=== PATIENT | female | born 1935 | race Caucasian/White ===

== ENCOUNTER 2018-09-20 00:13 | Emergency (ER) | payer OTHER ==
[~2018-09-20] VITALS: Ht 152.4 cm; Wt 59.0 kg
[2018-09-20] MEDS ORDERED: PREDNISONE 5 MG5 M1 PO (00:33)
[2018-09-20] MEDS ORDERED: OXYBUTYNIN ER 55 M1 PO (00:34)
[2018-09-20] MEDS ORDERED: LEVOTHYROXINE100 MCG PO (00:35)
[2018-09-20] MEDS ORDERED: PEPCID20 MG PO (00:36)
[2018-09-20] MEDS ORDERED: TOPROL XL25 MG PO (00:36)
[2018-09-20] MEDS ORDERED: SINEMET 25-1001 EAC1 PO (00:38)
[2018-09-20] MEDS ORDERED: TRANSDERM-SCOP1 EACH TOP (00:41)
[2018-09-20] MEDS ORDERED: MSL20MG/ML PO (00:42)
[2018-09-20 02:59] VITALS: BP 99/57
== END 2018-09-20 03:01 | disposition home or self-care (01) ==
LOC: ER 00:13
DX: S01.01XA Laceration without foreign body of scalp, initial encounter (principal); Z88.0 Allergy status to penicillin; W18.39XA Other fall on same level, initial encounter; Y92.89 Other specified places as the place of occurrence of the external cause; Y93.89 Activity, other specified; Y99.8 Other external cause status

== ENCOUNTER 2018-10-06 18:25 | Inpatient (IN) | payer OTHER ==
[~2018-10-06] VITALS: Ht 162.6 cm; Wt 48.6 kg
--- NOTE | ~2018-10-06 | H ---
[facility] [place] [address] HISTORY AND PHYSICAL Name: ESTEBAN GONZALEZ Room #: 430-P ADM IN M.R.#: [id number] Admission: 10/06/18 Attend Phys: Austyn Barlow MD Discharge: Date of : 35 Report #: [id number] THIS REPORT FOR: //name// CC: Uday Barlow DATE OF SERVICE: 10/06/2018 HISTORY OF PRESENT ILLNESS: Information is obtained from the patient's who gives limited, but reliable information, and the Emergency Room physician. The patient has dementia and has been limited, apparently bed bound, but with some contractures, but alert enough to drink and eat when spoon fed. Her vocalization is limited. However, over the last several days, she has become increasingly nonresponsive and yesterday, the day of admission, she did not respond or speak at all. She did not swallow anything, would not eat or drink nor take her medications. She was brought to the Emergency Room where a urinary tract infection was identified and admission was arranged. She was given intravenous antibiotics in the Emergency Room and started on intravenous fluids. Her is present this morning, as well as yesterday, and now she has her eyes open, she mumbles a few syllables in response to questions. The nursing staff has been able to feed her pudding, she has been able to swallow some of her medications, and drinks some thickened fluids. He comments that she is much better today than she was yesterday before she came to the Emergency Room. 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 ALLERGIES: PENICILLINS. Because of her dementia, she is a long-term care resident at a longterm facility, she recently was on hospice and discharged from hospice, she is a DNR. DIET: Pureed with nectar-thick liquids. MEDICATIONS: Prednisone 5 mg on a daily basis, oxybutynin extended release 15 mg tablets 1 every 24 hours for urine retention, levothyroxine 100 mcg daily, famotidine one 20 mg daily, Sinemet 25/100 three times daily, scopolamine patch every 3 days p.r.n. secretions, morphine 0.25 mL every 4 hours as needed for pain and prior to dressing changes, ipratropium by nebulizer every 6 hours, Tylenol 2 tablets every 8 hours scheduled, Mucinex 600 mg twice daily, [address] [address] HISTORY AND PHYSICAL Name: ETSEBAN GONZALEZ Room #: 430-P [facility] IN M.R.#: [id number] Admission: 10/06/18 Attend Phys: Austyn Barlow MD Discharge: Date of : 35 Report #: [id number] metoprolol tartrate 25 mg once daily. SPECIFIC NURSING INTERVENTIONS: Dressing changes for her sacral decubitus, low air loss mattress on her bed, heel lift boots at all times. REVIEW OF SYSTEMS: Information is unavailable. FAMILY HISTORY: Not available. PHYSICAL EXAMINATION: GENERAL: This morning exam shows an 83-year-old female who is alert, but barely responsive. Her is present. Her eyes are open, and partially follow the examiner around the room. She is lying on her side. Her legs are atrophied with SCDs on. Her legs are flexed. LUNGS: Breath sounds showed minimal depth of respiration. Posteriorly, there are a few crackles present. HEART: S1 and S2 are normal. ABDOMEN: Soft, nontender, without hepatosplenomegaly or masses. LABORATORY DATA: Her potassium is low at 3.0, and came up to 3.3 after overnight fluids. Her blood sugar this morning is mildly low at 70, a note made that she was not eating yesterday, but now has started to eat. Her albumin is 2.5. Hemoglobin is 12.4 and dropped to 11.2 with rehydration. Her urine is nitrite positive, leukocyte esterase positive with many bacteria and white blood cells. ASSESSMENT: 1. Urinary tract infection. 2. Metabolic encephalopathy that has responded to medical treatment. 3. Volume depletion. 4. Dementia. 5. Parkinson's disease. 6. Hypokalemia. 7. History of diabetes with low blood sugars. 8. Low thyroid. 9. Gastroesophageal reflux disease. 10. A clean appearing 6 x 6 x 1 cm deep sacral decubitus ulcer. 11. Hypertension. PLAN: IV fluids were continued, IV Rocephin is continued, her home medicines are being resumed now that she is swallowing, and her home diet. Pulmonary consultation will be obtained, and PRAFO boots ordered as well. [facility] [address] [place] [address] HISTORY AND PHYSICAL Name: ESTEBAN GONZALEZ Room #: 430-P ADM IN Kirt#: [id number] Admission: 10/06/18 Attend Phys: Austyn Barlow MD Discharge: Date of : 35 Report #: [id number] She remains a do not resuscitate. By: 1506 1552 Austyn Barlow MD /nt
--- NOTE | ~2018-10-06 | EKG ---
[address] [employer] [place] [address] ELECTROCARDIOGRAM REPORT Name: ESTEBAN GONZALEZ Room #: 430-P ADM IN M.R.#: [id number] Admission: 10/06/18 Attend Phys: Austyn Barlow MD Discharge: Date of : 35 Report #: [id number] THIS REPORT FOR: //name// [facility] ED Test Date: 2018-10-06 Test Time: 18:54:38 Pat Name: ESTEBAN GONZALEZ Department: Room: 430 Gender: F Cafeteria Assistant: BRI : 1935 Requested By: Jose G Britton Order Number: [id number] MD: Glenn Patrick Measurements Intervals [place] Rate: 89 P: 0 [place]: 68 QRS: 66 QRSD: 178 T: -38 QT: 459 QTc: 559 Interpretive Statements Sinus rhythm Multiple ventricular premature complexes Short [place] interval Nonspecific intraventricular conduction delay Probable anteroseptal infarct, old No previous ECG available for comparison Electronically Signed On 10-08-2018 20:27:06 BUNDLE HELPER by Glenn Patrick [email or web address] <ELECTRONICALLY SIGNED> By: Glenn Patrick MD 10/08/182026 53 53 Glenn Patrick MD /EPI
--- NOTE | ~2018-10-06 | HC ---
[facility] [place] [address] CONSULTATION Name: ESTEBAN GONZALEZ Room #: 430-P [facility] IN M.R.#: [id number] Admission: 10/06/18 Attend Phys: Fausot Thompson MD Discharge: 10/09/18 Date of : 35 Report #: [id number] THIS REPORT FOR: //name// CC: Fausto Barlow DATE OF SERVICE: 10/08/2018 REASON FOR CONSULTATION: Stage 4 chronic pressure ulcer in an 83-year-old woman with parkinsonism, dementia, debility and contractures, admitted for change in mental status, dehydration, urinary tract infection. HISTORY OF PRESENT ILLNESS: The patient is an 83-year-old woman who resides at [facility]. Her is sitting at the bedside. The patient does not give a history herself. The patient has been residing at [facility] for some time. She has had a sacral pressure sore for 8 months, but according to her this has been chronic and stable. The patient was in [facility], stopped eating, became unresponsive with altered mental status, therefore was admitted to [facility] for medical evaluation. I am consulted for wound care here for sacral pressure sore. PAST MEDICAL HISTORY: 1. Parkinson disease. 2. Coronary artery disease. 3. Dementia. 4. Diabetes mellitus type 2. 5. Extreme debility, immobility and contractures of extremities. 6. Recent decrease in diet. PAST SURGICAL HISTORY: Noncontributory. REVIEW OF SYSTEMS: Noncontributory. PHYSICAL EXAMINATION: GENERAL: Shows a chronically ill-appearing elderly woman with parkinsonism and dementia. The patient is nonresponsive. The patient has contractures of the upper and lower extremities. HEENT: Mucous membranes are moist. NECK: Somewhat stiff. ABDOMEN: Soft. EXTREMITIES: No use of lower extremities. BACK: Examination of the patient's back shows a chronic ill-appearing 2.5 cm x 3 cm x 0.2 cm deep sacral pressure sore. There is palpable bone at the base covered with granulation tissue. Wound is pink, smooth and chronic appearing with no cellulitis, with no tunneling, with no purulence. Wound was dressed with quarter strength Dakin's pack. [address] [address] CONSULTATION Name: ESTEBAN GONZALEZ Room #: 430-P [facility] IN M.R.#: [id number] Admission: 10/06/18 Attend Phys: Fausto Thompson MD Discharge: 10/09/18 Date of : 35 Report #: [id number] IMPRESSION: Chronic stable stage 4 sacral pressure in a very debilitated and immobile elderly woman with dementia and parkinsonism. Wound is stable, this is not the source for sepsis. Dressed the wound initially with quarter strength Dakin's dressings and then change to alternative dressings such as Aquacel silver. Offload with low air loss mattress, reposition frequently. Wound Care team will follow. <ELECTRONICALLY SIGNED> By: Paul Ardon MD 10/10/18 0759 1625 2055 Paul Ardon MD /nt
[~2018-10-06 18:25] MED LIST: LEVOTHYROXINE100 MCG PO; MSL20MG/ML PO; OXYBUTYNIN ER 55 M1 PO; PEPCID20 MG PO; PREDNISONE 5 MG5 M1 PO; SINEMET 25-1001 EAC1 PO; TOPROL XL25 MG PO; TRANSDERM-SCOP1 EACH TOP
[2018-10-06 18:33] VITALS: BP 110/62
[2018-10-06 18:43] LABS: URINE BILIRUBIN NEGATIVE (Negative); URINE BLOOD TRACE (Negative); URINE COLOR YELLOW; URINE GLUCOSE-RANDOM* NEGATIVE (Negative); URINE KETONES TRACE (Negative); URINE LEUKOCYTES-REFLEX 2+ (Negative); URINE NITRITE-REFLEX POSITIVE (Negative); URINE PROTEIN (DIPSTICK) TRACE (Negative)
[2018-10-06 18:44] LABS: URINE CLARITY HAZY
[2018-10-06 18:48] LABS: SQUAMOUS 4-10 Moderate /LPF (0-3)
[2018-10-06 18:49] LABS: BACTERIA-REFLEX >30 Many /HPF (None Seen); CASTS None Seen /LPF (None Seen); CRYSTALS None Seen /LPF (None Seen); URINE RBC 0-2 Rare /HPF (0-2); URINE WBC-REFLEX >25 Many /HPF (0-5)
[2018-10-06 19:28] LABS: ABSOLUTE NEUTROPHILS 4.6 thou/uL (1.4-8.2); BASOPHILS 1.4 % (0.0-2.0); EOSINOPHILS 1.5 % (0.0-3.0); HEMATOCRIT 37.1 % (37.0-47.0); HEMOGLOBIN 12.4 gm/dL (12.0-15.0); LYMPHOCYTES 30.7 % (24.0-44.0); MCH 32.5 pg (26.0-34.0); MCHC 33.3 g/dL (28.0-37.0); MCV 97.5 fL (80.0-100.0); MONOCYTES 7.7 % (1.0-8.0); PLATELET COUNT 253 thou/uL (150-400); POLYS 58.7 % (36.0-66.0); RBC 3.81 mil/uL (4.20-5.00); WBC 7.8 thou/uL (4.0-11.0)
[2018-10-06 19:37] LABS: ANION GAP 5 mmol/L (7-16); BUN 10 mg/dL (7-18); CALCIUM 8.7 mg/dL (8.5-10.1); CHLORIDE 105 mmol/L (98-107); CO2 29 mmol/L (21-32); CREATININE 0.5 mg/dL (0.6-1.0); GLUCOSE 84 mg/dL (74-106); SODIUM 139 mmol/L (136-145)
[2018-10-06 19:45] LABS: TROPONIN-I <0.06 ng/mL (<0.06)
[2018-10-06] MEDS ORDERED: MORPHINE PO (21:01)
[2018-10-06] MEDS ORDERED: IPRAT-ALBUT 0.5-3 ML (21:04)
[2018-10-06] MEDS ORDERED: TYLENOL EXTRA500 MG PO (21:05)
[2018-10-06] MEDS ORDERED: MUCINEX600 MG PO (21:07)
[2018-10-06 21:24] VITALS: BP 113/62
[2018-10-06 21:36] VITALS: BP 102/45
[2018-10-06 22:00] VITALS: BP 115/68
[2018-10-07] MEDS ORDERED: MSL20MG/ML PO (03:49)
[2018-10-07 05:00] VITALS: BP 121/68
[2018-10-07 06:31] LABS: ABSOLUTE NEUTROPHILS 5.2 thou/uL (1.4-8.2); BASOPHILS 0.4 % (0.0-2.0); EOSINOPHILS 1.7 % (0.0-3.0); HEMATOCRIT 34.2 % (37.0-47.0); HEMOGLOBIN 11.2 gm/dL (12.0-15.0); LYMPHOCYTES 26.2 % (24.0-44.0); MCH 32.7 pg (26.0-34.0); MCHC 32.9 g/dL (28.0-37.0); MCV 99.6 fL (80.0-100.0); MONOCYTES 6.4 % (1.0-8.0); PLATELET COUNT 231 thou/uL (150-400); POLYS 65.3 % (36.0-66.0); RBC 3.43 mil/uL (4.20-5.00); RDW 14.7 % (10.5-14.5)
[2018-10-07 06:46] LABS: ALBUMIN 2.5 g/dL (3.4-5.0); CREATININE 0.5 mg/dL (0.6-1.0); POTASSIUM 3.3 mmol/L (3.5-5.1); TOTAL BILIRUBIN 0.3 mg/dL (<0.1-1.0); TOTAL PROTEIN 5.9 g/dL (6.4-8.2)
[2018-10-07 08:38] VITALS: BP 112/67
[2018-10-07 16:24] VITALS: BP 109/49
[2018-10-07 20:10] VITALS: BP 104/59
[2018-10-08 03:40] VITALS: BP 106/56
[2018-10-08 05:50] LABS: HEMATOCRIT 32.9 % (37.0-47.0); HEMOGLOBIN 10.6 gm/dL (12.0-15.0); MCH 32.1 pg (26.0-34.0); MCHC 32.1 g/dL (28.0-37.0); MCV 99.9 fL (80.0-100.0); RBC 3.29 mil/uL (4.20-5.00); RDW 14.8 % (10.5-14.5); WBC 6.1 thou/uL (4.0-11.0)
[2018-10-08 06:00] LABS: CALCIUM 8.2 mg/dL (8.5-10.1); CREATININE 0.5 mg/dL (0.6-1.0); POTASSIUM 4.2 mmol/L (3.5-5.1)
[2018-10-08 07:38] VITALS: BP 111/77
[2018-10-08 16:26] VITALS: BP 110/52
[2018-10-08 20:22] VITALS: BP 107/59
[2018-10-09 03:25] VITALS: BP 99/45
[2018-10-09 06:21] LABS: HEMATOCRIT 34.9 % (37.0-47.0); HEMOGLOBIN 11.6 gm/dL (12.0-15.0); MCH 32.6 pg (26.0-34.0); MCHC 33.2 g/dL (28.0-37.0); MCV 98.3 fL (80.0-100.0); RBC 3.55 mil/uL (4.20-5.00); RDW 14.6 % (10.5-14.5)
[2018-10-09 06:25] LABS: CALCIUM 8.4 mg/dL (8.5-10.1); CREATININE 0.5 mg/dL (0.6-1.0); POTASSIUM 4.3 mmol/L (3.5-5.1)
[2018-10-09 07:34] VITALS: BP 113/59
[2018-10-09] MEDS ORDERED: CEFUROXIME250 MG PO (10:48)
[2018-10-09] MEDS ORDERED: PROBIOTIC1 EAC1 PO (10:55)
[2018-10-09 15:52] VITALS: BP 130/70
== END 2018-10-09 17:55 | DRG 91 ==
LOC: ER 18:25 → EROBS 20:02 → 4E 20:02
PROVIDERS: Emergency Medicine; Internal Medicine
DX: G92 Toxic encephalopathy (principal); L89.154 Pressure ulcer of sacral region, stage 4; N39.0 Urinary tract infection, site not specified; Z68.1 Body mass index [BMI] 19.9 or less, adult; Z66 Do not resuscitate; G20 Parkinson's disease; F02.80 Dementia in other diseases classified elsewhere, unspecified severity, without behavioral disturbance, psychotic disturbance, mood disturbance, and anxiety; K21.9 Gastro-esophageal reflux disease without esophagitis; I10 Essential (primary) hypertension; E87.6 Hypokalemia; J84.10 Pulmonary fibrosis, unspecified; I25.10 Atherosclerotic heart disease of native coronary artery without angina pectoris; E11.40 Type 2 diabetes mellitus with diabetic neuropathy, unspecified; M19.90 Unspecified osteoarthritis, unspecified site; E86.9 Volume depletion, unspecified; E03.9 Hypothyroidism, unspecified; B96.20 Unspecified Escherichia coli [E. coli] as the cause of diseases classified elsewhere; R63.0 Anorexia; E78.5 Hyperlipidemia, unspecified; F32.9 Major depressive disorder, single episode, unspecified; Z79.52 Long term (current) use of systemic steroids; Z79.899 Other long term (current) drug therapy; Z88.0 Allergy status to penicillin
CPT/HCPCS: 10084

== ENCOUNTER 2018-11-06 15:54 | Inpatient (IN) | payer OTHER ==
[2018-11-06] VITALS (16 sets, daily range): BP systolic 80–128; BP diastolic 29–79
[~2018-11-06] VITALS: Ht 154.9 cm; Wt 48.1 kg
[~2018-11-06 15:54] MED LIST changes: +CEFUROXIME250 MG PO; +IPRAT-ALBUT 0.5-3 ML; +MORPHINE PO; +MUCINEX600 MG PO; +PROBIOTIC1 EAC1 PO; +TYLENOL EXTRA500 MG PO
[2018-11-06 16:26] LABS: ANION GAP 13 mmol/L (7-16); BUN 41 mg/dL (7-18); CALCIUM 9.6 mg/dL (8.5-10.1); CHLORIDE 104 mmol/L (98-107); CO2 25 mmol/L (21-32); CREATININE 1.1 mg/dL (0.6-1.0); GLUCOSE 156 mg/dL (74-106); POTASSIUM 3.6 mmol/L (3.5-5.1); SODIUM 142 mmol/L (136-145)
[2018-11-06 16:32] LABS: WBC 3.9 thou/uL (4.0-11.0)
[2018-11-06 16:32] LABS: URINE CLARITY CLOUDY; URINE COLOR YELLOW; URINE GLUCOSE-RANDOM* NEGATIVE (Negative); URINE KETONES 1+ (Negative); URINE PROTEIN (DIPSTICK) 2+ (Negative); URINE SPECIFIC GRAVITY > 1.030 (1.005-1.035)
[2018-11-06 16:33] LABS: HEMATOCRIT 42.6 % (37.0-47.0); MCHC 32.8 g/dL (28.0-37.0); MCV 97.5 fL (80.0-100.0); PLATELET COUNT 187 thou/uL (150-400); RBC 4.37 mil/uL (4.20-5.00); RDW 14.8 % (10.5-14.5)
[2018-11-06 16:33] LABS: ICTOTEST (BILI CONFIRMATORY) Negative (Negative); URINE BILIRUBIN NEGATIVE (Negative); URINE BLOOD 1+ (Negative); URINE LEUKOCYTES-REFLEX NEGATIVE (Negative); URINE NITRITE-REFLEX POSITIVE (Negative)
[2018-11-06 16:35] LABS: ALBUMIN 2.7 g/dL (3.4-5.0); SGOT 36 U/L (15-37); SGPT 21 U/L (30-65); TOTAL BILIRUBIN 2.1 mg/dL (<0.1-1.0); TROPONIN-I <0.06 ng/mL (<0.06)
[2018-11-06 16:41] LABS: AMORPHOUS URATES Many /LPF (None Seen); BACTERIA-REFLEX >30 Many /HPF (None Seen); COARSE GRANULAR CASTS 0-3 Few /LPF (None Seen); SQUAMOUS 4-10 Moderate /LPF (0-3); URINE RBC 3-10 Few /HPF (0-2); URINE WBC-REFLEX 6-15 Few /HPF (0-5)
[2018-11-06 16:42] LABS: HYALINE CASTS 0-3 Few /LPF (None Seen); YEAST-REFLEX Present (None Seen)
[2018-11-06 17:09] LABS: ABSOLUTE NEUTROPHILS 2.7 thou/uL (1.4-8.2); METAMYELOCYTES 16 %; MYELOCYTES 1 %
[2018-11-07] VITALS (9 sets, daily range): BP systolic 79–122; BP diastolic 48–70
[2018-11-07 00:06] LABS: HEMATOCRIT 32.9 % (37.0-47.0); MCH 32.5 pg (26.0-34.0); MCHC 32.9 g/dL (28.0-37.0); MCV 98.9 fL (80.0-100.0); RBC 3.33 mil/uL (4.20-5.00); RDW 14.6 % (10.5-14.5)
[2018-11-07 00:10] LABS: WBC 1.4 thou/uL (4.0-11.0)
[2018-11-07 00:11] LABS: HEMOGLOBIN 10.8 gm/dL (12.0-15.0); PLATELET COUNT 105 thou/uL (150-400)
[2018-11-07 00:12] LABS: CALCIUM 8.1 mg/dL (8.5-10.1)
[2018-11-07 00:14] LABS: POTASSIUM 2.9 mmol/L (3.5-5.1)
[2018-11-07 00:45] LABS: ABSOLUTE NEUTROPHILS 1.1 thou/uL (1.4-8.2); METAMYELOCYTES 1 %
--- NOTE | 2018-11-07 04:38 | NUR ---
END OF SHIFT; PT OPENS EYES SPONTANEOUSLY. NO VERBAL RESPONSES. PT PROGRESSING TOWARD GOALS. HR LESS TACHYCARDIC 98. BP UP 102/59 WITH FLUIDS INFUSING. SR WITH NO ECTOPY WITH POTASSIUM REPLACEMENT FOR VALUE 2.9. CHANGED MENDOZA, CLOUDY CONNOR URINE -URINE OUTPUT REMAINS LOW, BUT IMPROVING. FI02 TITRATE DOWN TO .50 ON BIPAP ---02SAT 97. PROGRESSING TOWARD GOALS. WILL TRANSFER UP TO [facility] ORDERED PER ADMISSION IN AM
[2018-11-07 05:19] LABS: HEMATOCRIT 32.5 % (37.0-47.0); HEMOGLOBIN 10.8 gm/dL (12.0-15.0); MCH 32.7 pg (26.0-34.0); MCHC 33.2 g/dL (28.0-37.0); MCV 98.4 fL (80.0-100.0); PLATELET COUNT 90 thou/uL (150-400); RDW 14.7 % (10.5-14.5); WBC 2.3 thou/uL (4.0-11.0)
[2018-11-07 05:30] LABS: CALCIUM 7.8 mg/dL (8.5-10.1); CREATININE 0.8 mg/dL (0.6-1.0); POTASSIUM 3.7 mmol/L (3.5-5.1)
[2018-11-07 06:20] LABS: ABSOLUTE NEUTROPHILS 1.8 thou/uL (1.4-8.2); METAMYELOCYTES 3 %
[2018-11-07 06:22] LABS: LARGE PLATELETS RARE; PLATELET ESTIMATE DECREASED
--- NOTE | 2018-11-07 07:55 | EKG ---
[place] [address] [place] [address] ELECTROCARDIOGRAM REPORT Name: ESTEBAN GONZALEZ Room #: 351-P ADM IN M.R.#: [id number] Admission: 11/06/18 Attend Phys: Austyn Barlow MD Discharge: Date of : 35 Report #: [id number] THIS REPORT FOR: //name// [facility] ED Test Date: 2018-11-06 Test Time: 16:20:25 Pat Name: ESTEBAN GONZALEZ Department: Room: [facility] Gender: F Burn Table Operator: BETH : 1935 Requested By: Jacqueline Coulter Order Number: [id number] MD: Dave Geiger Measurements Intervals [place] Rate: 108 P: 17 VT: 166 QRS: 53 QRSD: 83 T: 20 QT: 332 QTc: 445 Interpretive Statements Sinus tachycardia Low voltage, extremity leads Compared to ECG 10/06/2018 18:54:38 Low QRS voltage now present Ventricular premature complex(es) no longer present Electronically Signed On 11-07-2018 7:55:26 MANAGER RESIDENTIAL by Dave Geiger [email or web address] <ELECTRONICALLY SIGNED> By: Dave Geiger MD, [facility] 11/07/18 0755 1620 1620 Dave Geiger MD, [facility] /EPI
--- NOTE | 2018-11-07 10:31 | NUR ---
INITIAL ASSESSMENT: Pt evaluated for d/c planning needs. Reviewed chart and spoke with nurse, pt, spouse, and son. Pt is a beater lead care resident at [facility] since January 2018. Family is not happy with care at facility, and are looking into finding another facility. Son given list of snf facilities. He and family will look at list and make decision where they want pt to go on d/c from hospital. Will remain available to assist as needed.
--- NOTE | 2018-11-07 15:41 | NUR ---
WOUND CONSULT: PT. WAS SEEN TODAY BY DR. MURRAY AND MYSELF. PT. IS KNOWN TO THE WOUND CARE TEAM. PT. HAS A STAGE 4 PRESSURE ULCER TO HER SACRUM. THIS IS A CHRONIC WOUND WITH NO EVIDENCE OF BEING INFECTED AT THIS TIME. RECOMMENDATIONS: WET TO DRY SALINE DRESSINGS PT. AND STAFF NURSE WERE INSTRUCTED ON PLAN OF CARE.
--- NOTE | 2018-11-07 16:49 | EKG ---
[place] [address] [facility] [place] [address] ELECTROCARDIOGRAM REPORT Name: ESTEBAN GONZALEZ Room #: 351-P ADM IN M.R.#: [id number] Admission: 11/06/18 Attend Phys: Austyn Barlow MD Discharge: Date of : 35 Report #: [id number] THIS REPORT FOR: //name// [facility] Test Date: 2018-11-07 Test Time: 14:07:26 Pat Name: ESTEBAN GONZALEZ Department: Room: 351 Gender: F Corner Bead Operator: jlambmark : 1935 Requested By: Austyn Barlow Order Number: [id number] MD: Dave Geiger Measurements Intervals [place] Rate: 145 P: 239 NV: 113 QRS: 49 QRSD: 84 T: 46 QT: 316 QTc: 491 Interpretive Statements Atrial flutter with 2:1 AV conduction Occasional premature ventricular complexes Low voltage Compared to ECG 11/06/2018 16:20:25 Ventricular premature complex(es) now present Atrial flutter has replaced sinus rhythm Electronically Signed On 11-07-2018 16:49:03 REDEVELOPMENT MANAGER by Dave Geiger [email or web address] <ELECTRONICALLY SIGNED> By: Dave Geiger MD, [facility] 11/07/18 1649 1407 1407 Dave Geiger MD, [facility] /EPI
--- NOTE | 2018-11-07 18:37 | NUR ---
PATIENT WAS TAKEN OFF BIPAP AND NOW ON OXYGEN AT 2LPM AND SATS HAS REMAINED ABOVE 94% SO FAR. SHE DOES NOT TRACK, SOME MOVEMENT WITH HER RIGHT HAND BUT OTHERWISE FLACCID WITH OTHER EXTREMITIES. HAS HAD 6 BOWEL MOVEMENTS TODAY. DOES NOT SEEM TO BE IN PAIN. DR WRIGHT AND MIC SPOKE WITH FAMILY ABOUT RESPITE CARE AND THEY ARE IN AGREEMENT BUT THEY WILL MAKE FINAL DECISION LATER ON. WILL CONT WITH PLAN OF CARE.
[2018-11-08 00:15] VITALS: BP 140/79
--- NOTE | 2018-11-08 03:31 | NUR ---
ASSUMED PT CARE AROUND 1900. LOTS OF FAMILY PRESENT AT BEDSIDE EARLIER IN THE SHIFT. AT BEDSIDE ALL NIGHT. PT REMAINS LETHARGIC, DOES NOT RESPOND TO STIMULI. FAMILY STATES SHE TYPICALLY DOES NOT RESPOND, BUT SHES DOES OPEN EYES SPONTANEOUSLY. O2 SATS STABLE ON 3L NC. DR WRIGHT ROUNDED ON UNIT EARLIER IN THE EVENING; GIVEN UPDATE ON PT AND THAT SHE GOES IN AND OUT OF AFIB ON TELE. IVF INFUSING ORDERED. PT HAD MULTIPLE SOFT STOOLS DURING THE NIGHT. MENDOZA TO DD. Q2H TURN TO PREVENT FURTHER SKIN BREAKDOWN. FALL PRECAUTIONS IN PLACE. NOT PROGRESSING WELL TOWARD POC GOALS. WILL CONTINUE TO MONITOR FURTHER.
[2018-11-08 04:10] LABS: CALCIUM 7.5 mg/dL (8.5-10.1); CREATININE 0.8 mg/dL (0.6-1.0)
[2018-11-08 04:11] LABS: HEMATOCRIT 32.6 % (37.0-47.0); HEMOGLOBIN 10.8 gm/dL (12.0-15.0); MCH 32.4 pg (26.0-34.0); MCHC 33.1 g/dL (28.0-37.0); MCV 98.1 fL (80.0-100.0); RBC 3.33 mil/uL (4.20-5.00); RDW 15.1 % (10.5-14.5); WBC 4.5 thou/uL (4.0-11.0)
[2018-11-08 04:18] LABS: POTASSIUM 2.7 mmol/L (3.5-5.1)
[2018-11-08 05:00] VITALS: BP 128/68
--- NOTE | 2018-11-08 06:09 | NUR ---
PT AFIB, TACHYCARDIC IN 140S-150S THIS AM. PT ALSO NOTED TO HAVE MORE COARSE LUNG SOUNDS AND LOW URINE OUTPUT. NOTIFIED DR WRIGHT. ORDERS RECEIVED. DECREASED IVF RATE PER DR ORDER. ALSO ADMINISTERED IV LASIX AND IV METOPROLOL PER ORDER. BP STABLE. WILL CONTINUE TO MONITOR CLOSELY.
[2018-11-08 07:46] VITALS: BP 138/88
--- NOTE | 2018-11-08 10:36 | HC ---
[facility] [place] [address] CONSULTATION Name: ESTEBAN GONZALEZ Room #: 351-P ADM IN M.R.#: [id number] Admission: 11/06/18 Attend Phys: Austyn Barlow MD Discharge: Date of : 35 Report #: [id number] THIS REPORT FOR: //name// CC: Fausto Fabiennecarmenza Austyn Barlow DATE OF SERVICE: 11/07/2018 ATTENDING PHYSICIAN: Austyn Barlow MD REASON FOR CONSULTATION: Sepsis. HISTORY OF PRESENT ILLNESS: The patient is an 83-year-old woman with dementia and Parkinson's disease, admitted with severe sepsis. The patient unresponsive at the present time and all family members present in the patient's room now, reporting they want Mother Nature's to take its course and she should not be a candidate for CPR. PAST MEDICAL HISTORY: Coronary artery disease, bypass surgery. Parkinson's disease and dementia. Hypertension. Diabetes mellitus. Dyslipidemia. Pressure ulcer, sacrum. Dysphagia. Depression. Chronic Mao catheter. DRUG ALLERGIES: PENICILLIN. MEDICATIONS: The patient on vancomycin 500 mg IV daily, aztreonam 1 gram IV twice daily, normal saline at 1000 mL every 7 hours, p.r.n. glucose, glucagon, magnesium and potassium supplementation per protocol. SOCIAL HISTORY: See H and P, old records. FAMILY HISTORY: See H and P, old records. REVIEW OF SYSTEMS: Unable to obtain. PHYSICAL EXAMINATION: GENERAL: Elderly unresponsive woman. VITAL SIGNS: Temperature 99, pulse 98, respirations 23, BP 119/70. It was as low as 79/48. Intake 1750, output 150, O2 saturation 97% on 4 liters oxygen nasal cannula. HEENMT: Pupils small, non-reactive. Mouth unable to examine. NECK: Stiff. The patient is stiff all over. LUNGS: Basilar crackles. HEART: S1, S2. ABDOMEN: Soft, no masses or megaly. PELVIC AND RECTAL: Deferred. EXTREMITIES: No clubbing, cyanosis. [facility] [address] [place] [address] CONSULTATION Name: ESTEBAN GONZALEZ Room #: 351-P [facility] IN ..#: [id number] Admission: 11/06/18 Attend Phys: Austyn Barlow MD Discharge: Date of : 35 Report #: [id number] NEUROLOGIC: Unable to evaluate. LABORATORY DATA: Revealed the following abnormals. BUN 41, creatinine 1.1 on admission, decreased to 29.8 today. Glucose 65 mg/dL. Total bilirubin 2.1 mg/dL, albumin 2.7 g/dL. WBC 2300, hemoglobin 10.8 g/dL, platelets 90,000. White blood cell count differential revealed 42% segmented neutrophils, 36% bands. Urinalysis abnormal with specific gravity greater than 1.030, pH 5.5, 2+ protein, positive nitrite. The microscopic exam revealed pyuria, bacteriuria as well as yeast. ABGs were canceled. MICROBIOLOGY DATA: Blood cultures remain negative at the time of this dictation. Urine culture pending. Decubitus culture pending. RADIOLOGY EVALUATION: CT scan of the head without contrast revealed no acute intracranial abnormalities. Chest x-ray revealed extensive chronic lung changes, cardiomegaly, no failure, patchy pneumonitis not excluded. A repeat chest x-ray today revealed chronic interstitial lung disease. ASSESSMENT: 1. Severe sepsis, possible acute urinary tract infections -- septic shock. 2. Chronic pulmonary infiltrates. 3. Malnutrition. 4. Sacral decubitus. 5. Parkinson's disease with progressive dementia. 6. History of coronary artery bypass grafting. SUGGESTIONS: Recommend continue current regimen of parenteral fluids and broad spectrum antibiotics. I agree with family decision to make the patient DNR and possibly recommend comfort care only. Dr. Barlow, thank you for requesting my suggestions. <ELECTRONICALLY SIGNED> By: Avinash Patrick MD 11/08/18 1036 1115 1224 Avinash Patrick MD /nt
--- NOTE | 2018-11-08 11:01 | NUR ---
call placed to dr. conde 1) numerous family members at , 2) svt continues and 3) o2 per nc increased to 4lt nc due to o2 sat of 84% on 3lt nc.
[2018-11-08 11:28] VITALS: BP 119/77
--- NOTE | 2018-11-08 11:39 | NUR ---
Nutrition: Pt admitted with HCAP, severe sepsis, UTI, elevated bilirubin, AMS. Seen due to wound risk which is stage 4 pressure ulcer to sacrum. Currently on bipap and NPO. Appears plan of care may be comfort. RD will follow along
--- NOTE | 2018-11-08 15:50 | NUR ---
WOUND FOLLOW UP: PT. WAS SEEN TODAY BY DR. MURRAY AND MYSELF. PT. WOUND IS STABLE AT THIS TIME. RECOMMENDATIONS: CONTINUE WITH CURRENT PLAN OF CARE. PT. AND STAFF NURSE WERE INSTRUCTED ON PLAN OF CARE.
[2018-11-08 16:08] VITALS: BP 109/70
--- NOTE | 2018-11-08 17:51 | NUR ---
care of pt assumed this am @ 0700. pt resting quietly and comfortably in her bed so s/s of pain/discomfort noted today. pt non responsive and non verbal. pt took no fluids or food today by mouth due to lethargic and sleepy. pt receiving ivf's w/o issue. santo functional w/o issues. pt w/ + mrsa screen, placed in isolation, family given printed education regarding isolation. bipap dc'd. continuous oximetry dc'd.
--- NOTE | 2018-11-08 19:47 | NUR ---
attempt to call [facility] to notify them of pt's passing this evening. no answer to the phone call, unable to leave a message. family states they will notify [facility] and thus gather her belongings in the near future. basket given (from [employer]) to the family for the passing of their family member.
--- NOTE | 2018-11-08 23:29 | NUR ---
PT AT 1905. DR WRIGHT WAS PRESENT TO CALL TIME OF . CALLED ALL PT'S CONSULTS PHYSICIANS TO LET THEM BE AWARE. ALSO SPOKE WITH NAVEEN DIAZ. COMPLETED ALL PAPERWORK AND NOTIFIED HOME.
--- NOTE | 2018-11-09 16:58 | H ---
[facility] [place] [address] [place] [address] HISTORY AND PHYSICAL Name: ESTEBAN GONZALEZ Room #: 351-P [facility] IN M.R.#: [id number] Admission: 11/06/18 Attend Phys: Austyn Barlow MD Discharge: 11/08/18 Date of : 35 Report #: [id number] THIS REPORT FOR: //name// CC: Vandanette Jay Barlow DATE OF SERVICE: 11/06/2018 CHIEF COMPLAINT: Severe sepsis, qualifying for septic shock. HISTORY OF PRESENT ILLNESS: This is the second admission [facility] for this 83-year-old female for the sepsis. She was admitted 10/06/2018 after 3-4 day history of not eating or drinking. She was placed on intravenous antibiotics and intravenous fluids, responded to treatment and returned to her baseline mentation. She was transferred back to her half-way home on oral antibiotics. Informants are the patient's , Joel Salazar, grandson Basilio Delcid, and [id number], Gracei Delcid. They report that she has once again not had much to eat or drink in the last several days, and has become progressively lethargic and without spontaneous movements. She has been in the Emergency Room for several hours now and received approximately 2 liters of IV fluid and they note return of spontaneous movement of muscles of facial expression and eye movement. They do note, however, that she has had a progressive long downhill course saying that the last time she was able to walk was 3 or more years ago, and that the last time she was able to completely straighten out her legs was greater than a year. She is bedfast and has large stage 4 sacral ulcer that appears about the same or perhaps worse than it did when I admitted her last month. PAST MEDICAL HISTORY: Significant for coronary artery disease, having had a coronary artery bypass surgery (chest x-ray shows median sternotomy and sternal wires), she has Parkinson's disease, progressive dementia without behavioral disturbances, hypertension, type 2 diabetes with diabetic neuropathy, gastroesophageal reflux disease, pulmonary fibrosis, osteoarthritis, hyperlipidemia, hypothyroidism, pressure ulcer of the sacrum, dysphagia, major depressive disorder that is recurring, urine retention requiring chronic Mao drainage, and history of multiple urinary tract infections. ALLERGIES: She has an allergy to PENICILLIN G. CURRENT MEDICATIONS: Prednisone 5 mg daily for pulmonary fibrosis, oxybutynin 15 mg daily for urine retention, chronic indwelling Mao catheter, levothyroxine 100 mcg daily, metoprolol succinate 25 mg once daily for hypertension, famotidine 20 mg twice daily for GERD, Sinemet 25/100 three times daily for Parkinson's disease, ipratropium/albuterol by nebulizer every [address] [address] HISTORY AND PHYSICAL Name: ESTEBAN GONZALEZ Room #: 351-P [facility] IN M.R.#: [id number] Admission: 11/06/18 Attend Phys: Austyn Barlow MD Discharge: 11/08/18 Date of : 35 Report #: [id number] for congestion, acetaminophen 500 mg 3 times a day for pain, guaifenesin 600 mg extended release twice daily for congestion, morphine sulfate 0.25 mL every 4 hours as needed for pain (she was on [facility] Medicaid hospice at the time she was transferred from the facility to the ER) and the Puracol followed by Maxorb Ag dressing after being topically cleansed with normal saline once daily to the coccyx, heel protectors, oxygen 2 liters by nasal cannula as needed, and nectar thickened liquids with pureed diet. SOCIAL HISTORY: She has been a residential resident for several years. Past tobacco and alcohol history is not currently available. REVIEW OF SYSTEMS: Not currently available. FAMILY HISTORY: Not available. PHYSICAL EXAMINATION: GENERAL: Shows a diminutive appearing elderly woman. At the beginning of my examination, she hardly moved her facial muscles at all, and at the end of the examination she did open her eyes spontaneously and look around the room without focusing on anything particularly. HEENT: Otherwise, unremarkable. LUNGS: There are diffuse rhonchi and a few crackles in all lung lion. CARDIOVASCULAR: S1, S2 are normal. ABDOMEN: Soft, nontender, without hepatosplenomegaly or masses. There is a relatively large deep sacral ulcer that appears to have progressed with more undermining recently. Mild amount of exudate is present on the dressings. There are flexion contractures of the legs. There is no edema in the legs. The skin of the lower extremities is mottled and the skin over the patella is cool to the touch. LABORATORY DATA: The chest x-ray shows marked pulmonary fibrosis, with new bibasilar infiltrates present. Creatinine is 1.1 compared with the baseline of 0.5, total bilirubin is elevated at 2.1 compared to baseline of 0.3, albumin shows severe malnutrition at 2.7. Lactic acid is in the "septic shock range" of 4.4, troponin is negative. WBCs are 3.9 thousand, below 4000 and the left shift is shown with 34% band forms. Segmented neutrophils are 36%. Hemoglobin is 14.4 compared with the baseline of 11.6. Urinalysis shows thick cloudy urine present in the Mao catheter tubing. Nitrites positive, bacteria are many. Squamous epithelial cells are moderate. WBCs are 6-15 and yeast are present. IMPRESSION [facility] [address] [place] [address] HISTORY AND PHYSICAL Name: ESTEBAN GONZALEZ Room #: 351-P [facility] IN M.R.#: [id number] Admission: 11/06/18 Attend Phys: Austyn Barlow MD Discharge: 11/08/18 Date of : 35 Report #: [id number] 1. Severe sepsis/septic shock. Lactic acid is over 4.0, mental status is altered -- family says she is less responsive than usual, bilirubin is over 2, WBCs are under 4000, respiratory rate is 37, heart rate is 114, temperature is 99.0. 2. Urinary tract infection. 3. Pneumonia. 4. Severe pulmonary fibrosis. 5. Progressive dementia with steady functional decline. 6. Persistent/progressive sacral ulcer. 7. Sacral decubitus ulcer. 8. Hypertension. 9. Parkinson's disease. 10. Dementia without behavior problems. 11. Other medical problems as mentioned above. PLAN: The patient's family is wanting to have her evaluated today, decided to discontinue the hospice services. Initially, when talking with me they wanted "everything done" including placement on a ventilator. They then talked with the pulmonary business risk consultant, Dr. Quinn Ruff and he reports they changed their minds back to having the DNR that had previously been signed and a copy of which is on the chart, and did not want full resuscitation after he told them that he would be unable to reverse her pulmonary fibrosis. She fits the criteria of healthcare-associated pneumonia. She is being admitted with aggressive fluid resuscitation and broad-spectrum antibiotic therapy. Dr. Ruff has been asked to see her for Pulmonary Medicine consultation and critical care management consultation. ADDITIONAL DIAGNOSES: 1. Toxic encephalopathy. 2. Severe malnutrition. <ELECTRONICALLY SIGNED> By: Austyn Barlow MD 11/09/18 1658 [id number] Austyn Barlow MD /nt
--- NOTE | 2018-11-10 18:30 | HC ---
[facility] [place] [address] [place] [address] CONSULTATION Name: ESTEBAN GONZALEZ Room #: 351-P [facility] IN M.R.#: [id number] Admission: 11/06/18 Attend Phys: Austyn Barlow MD Discharge: 11/08/18 Date of : 35 Report #: [id number] THIS REPORT FOR: //name// CC: Vandanette Jay Barlow DATE OF SERVICE: 11/07/2018 CHIEF COMPLAINT: Sacral pressure ulceration. HISTORY OF PRESENT ILLNESS: This is an 83-year-old female patient with whom I am familiar from a previous hospitalization. I saw her in early September. At that time, she had a stage 4 sacral pressure ulceration and advanced debility. She remains under the care of her family at home and lives with her . In that setting, she has been admitted again here with decreased mental status and chest x-ray revealed chronic bilateral infiltrates and chronic lower lobe fibrosis. The patient has a history of Parkinson's disease with advanced dementia. The patient is unable to provide any information about herself at this time. She is resting in her bed on BiPAP. CURRENT MEDICATIONS: Include enoxaparin, glucagon, magnesium oxide, potassium chloride, vancomycin, albuterol, carbidopa/levodopa, cefuroxime, famotidine, guaifenesin, Lactobacillus acidophilus, levothyroxine, metoprolol, morphine, oxybutynin, prednisone, scopolamine. ALLERGIES: PENICILLIN. SOCIAL HISTORY: The patient lives at home. No recent history of alcohol or tobacco use. REVIEW OF SYSTEMS: Not obtainable due to patient's diminished mental status. PHYSICAL EXAMINATION: VITAL SIGNS: At this time include pulse rate 100, respiratory rate of 30, blood pressure 99/55, temperature 99.7. GENERAL: This is a chronically ill and very frail appearing female patient who appears to be in mild respiratory distress. HEENT: Head is normocephalic. Nose and throat not assessed due to BiPAP in place. NECK: Supple. LUNGS: Diminished. HEART: Tachycardic without murmur. ABDOMEN: Soft. BACK: The sacral region demonstrates stage 4 sacral pressure ulcer. It is actually healthy and clean and relatively granulating. There are a few small spicules of bone palpable, but this does not appear to be infected. [facility] [address] [place] [address] CONSULTATION Name: ESTEBAN GONZALEZ Room #: 351-P [facility] IN M.R.#: [id number] Admission: 11/06/18 Attend Phys: Austyn Barlow MD Discharge: 11/08/18 Date of : 35 Report #: [id number] EXTREMITIES: She has some contracture of the lower extremities. NEUROLOGIC: The patient appears symmetrical. She is unable to follow commands at this time. LABORATORY DATA: At this time includes sodium 150, potassium 3.7, CO2 18, BUN 29, creatinine 0.8. White blood cell count is low at 2.2 with hemoglobin of 10.8. Albumin is low at 2.9. Lactic acid is 2.9. CLINICAL IMPRESSION: 1. Stage 4 sacral pressure ulceration. 2. Respiratory distress/respiratory failure. 3. Advanced debility. 4. Moderate protein-calorie malnutrition. RECOMMENDATIONS: At this point in time, the patient's primary issues here are pulmonary. She would not be an appropriate candidate for any surgical intervention at this time. The wound base is fairly clean and we will use saline moist gauze dressing once a day. Recommend a low air loss mattress, q. 2 hours turning and repositioning while in bed. I appreciate being asked to see her in consultation. <ELECTRONICALLY SIGNED> By: Benny Mak MD 11/10/18 1830 [id number] Benny Mak MD /nt
== END 2018-11-08 23:31 | DRG 871 ==
LOC: ER 15:54 → EROBS 17:37 → 3W 17:37 → ICU 22:44 → 3W 11-07 06:57
PROVIDERS: Physician Assistant; ADMIT Internal Medicine
PROC: 5A09357 Assistance with Respiratory Ventilation, Less than 24 Consecutive Hours, Continuous Positive Airway Pressure (ICD-10-PCS; principal; 2018-11-06)
DX: A41.9 Sepsis, unspecified organism (principal); L89.154 Pressure ulcer of sacral region, stage 4; J18.9 Pneumonia, unspecified organism; R65.21 Severe sepsis with septic shock; J96.01 Acute respiratory failure with hypoxia; N17.9 Acute kidney failure, unspecified; N39.0 Urinary tract infection, site not specified; I47.1 Supraventricular tachycardia; E44.0 Moderate protein-calorie malnutrition; I25.10 Atherosclerotic heart disease of native coronary artery without angina pectoris; Z66 Do not resuscitate; Y95 Nosocomial condition; Z51.5 Encounter for palliative care; G20 Parkinson's disease; F02.80 Dementia in other diseases classified elsewhere, unspecified severity, without behavioral disturbance, psychotic disturbance, mood disturbance, and anxiety; J84.10 Pulmonary fibrosis, unspecified; B96.20 Unspecified Escherichia coli [E. coli] as the cause of diseases classified elsewhere; E87.6 Hypokalemia; E11.40 Type 2 diabetes mellitus with diabetic neuropathy, unspecified; I10 Essential (primary) hypertension; K21.9 Gastro-esophageal reflux disease without esophagitis; M19.90 Unspecified osteoarthritis, unspecified site; E78.5 Hyperlipidemia, unspecified; E03.9 Hypothyroidism, unspecified; F32.9 Major depressive disorder, single episode, unspecified; Z88.0 Allergy status to penicillin; Z95.1 Presence of aortocoronary bypass graft; Z79.899 Other long term (current) drug therapy; Z68.20 Body mass index [BMI] 20.0-20.9, adult
CPT/HCPCS: 10203; 10879